=== PATIENT | female | born 1950 | race Caucasian/White ===

== ENCOUNTER 2019-12-11 11:23 | Emergency (ER) | payer SELFPAY ==
--- NOTE | 2019-12-11 11:28 | NUR ---
PATIENT LEFT WITHOUT BEING SEEN BY DR. ABARCA PRIOR TO TRIAGE. NO FURTHER CARE PROVIDED FOR PATIENT.
== END 2019-12-11 11:28 | disposition left against medical advice (07) ==
LOC: MED 11:23
DX: R06.02 Shortness of breath (principal); Z53.21 Procedure and treatment not carried out due to patient leaving prior to being seen by health care provider